=== PATIENT | male | born 1960 | race Caucasian/White ===

== ENCOUNTER 2021-02-11 07:57 | Day surgery (SDC) | payer OTHER ==
[~2021-02-11 07:57] MED LIST: ALBU90OI INH; ASPI81CH PO; AZIT250 PO; BUPR150ER PO; HYDACE5 PO; HYDGUAL120 PO; METF500 PO; METO25ER PO; NAPR500; Prinivil10 MG PO; ROSU5 PO; TRAM50 PO
--- NOTE | 2021-02-11 08:24 | NUR ---
Ambulatory in Day Surgery History, Chart, Medications and Allergies reviewed before start of procedure.Patient confirms NPO status and agrees with scheduled surgery. Patient states colon prep results clear. Patient States Post-Procedure ride home has been arranged.
--- NOTE | 2021-02-11 08:38 | NUR ---
02/11/21 0838 SILVIO CASTILLO History, Chart, Medications and Allergies reviewed before start of procedure. 3-LEAD EKG REVIEWED WITH PHYSICIAN PRIOR TO START OF PROCEDURE. O2 VIA POM INTACT THROUGHOUT SEDATION/PROCEDURE. MONITOR INTACT WITH CONTINUOUS PULSE OXIMETRY AND INTERMITTENT BP. PATIENT DETERMINED TO BE ASA APPROPRIATE FOR PROPOFOL SEDATION PRIOR TO START OF PROCEDURE BY .
--- NOTE | 2021-02-11 09:43 | NUR ---
DISCHARGE SUMMARY PT A&OX4, VSS, CINDY PO, DENIES NEEDING TO VOID, LEFT IN WC WITH DC VOLUNTEER, TO GO HOME WITH , WITH ALL PERSONAL POSSESSIONS INCLUDING PHONE AND DC PACKET. DC INSTRUCTIONS PROVIDED. PT REP UNDERSTANDING THOSE INSTRUCTIONS INCLUDING KEEPING FU APPT, COLONOSCOPY IN 3 YEARS. IV DC'D.
== END 2021-02-11 22:39 | disposition home or self-care (01) ==
LOC: ORSCMMR 07:57 → ORD 09:00 → ORSCMMR 22:39
PROVIDERS: Internal Medicine Gastroenterology
PROC: 0DBH8ZX Excision of Cecum, Via Natural or Artificial Opening Endoscopic, Diagnostic (ICD-10-PCS; principal; 2021-02-11 09:00)
PROC: 0DBN8ZX Excision of Sigmoid Colon, Via Natural or Artificial Opening Endoscopic, Diagnostic (ICD-10-PCS; principal; 2021-02-11 09:00)
PROC: 0DBM8ZX Excision of Descending Colon, Via Natural or Artificial Opening Endoscopic, Diagnostic (ICD-10-PCS; principal; 2021-02-11 09:00)
DX: Z12.11 Encounter for screening for malignant neoplasm of colon (principal); E11.9 Type 2 diabetes mellitus without complications; D12.5 Benign neoplasm of sigmoid colon; D12.4 Benign neoplasm of descending colon; D12.0 Benign neoplasm of cecum; K57.30 Diverticulosis of large intestine without perforation or abscess without bleeding; I10 Essential (primary) hypertension; E78.00 Pure hypercholesterolemia, unspecified; F32.9 Major depressive disorder, single episode, unspecified; Z79.84 Long term (current) use of oral hypoglycemic drugs; Z79.82 Long term (current) use of aspirin; Z79.899 Other long term (current) drug therapy
CPT/HCPCS: 82947; 88305; J2704; J7120

== ENCOUNTER 2021-09-02 08:33 | Emergency (ER) | payer OTHER ==
[~2021-09-02] VITALS: Ht 180.3 cm; Wt 99.8 kg
[~2021-09-02 08:33] MED LIST changes: +MELO7.5 PO
[2021-09-02 09:14] LABS: BASOPHILS ABSOLUTE AUTO 0.11 K/mm3 (0.00-0.23); BASOPHILS PERCENT AUTO 1 % (0-2); EOSINOPHILS ABSOLUTE AUTO 0.16 K/mm3 (0.00-0.68); EOSINOPHILS PERCENT AUTO 1 % (0-6); Hematocrit 47.4 % (37.0-53.0); Hemoglobin 16.4 g/dL (13.5-17.5); IMMATURE GRAN ABSOLUTE AUTO 0.09 K/mm3 (0.00-0.10); IMMATURE GRAN PERCENT AUTO 1 % (0-1); LYMPHOCYTES ABSOLUTE AUTO 2.68 K/mm3 (0.84-5.20); LYMPHOCYTES PERCENT AUTO 14 % (21-46); MONOCYTES ABSOLUTE AUTO 1.43 K/mm3 (0.16-1.47); MONOCYTES PERCENT AUTO 8 % (4-13); Mean Corpuscular HGB 30.2 pg (26.0-34.0); Mean Corpuscular HGB Conc 34.6 g/dL (31.5-36.5); Mean Corpuscular Volume 87 fL (80-100); Mean Platelet Volume 10.6 fL (9.1-12.4); NEUTROPHILS ABSOLUTE AUTO 14.28 K/mm3 (1.96-9.15); NEUTROPHILS PERCENT AUTO 76 % (41-73); Platelet Count 433 K/mm3 (150-400); RDW Coefficient Variation 12.1 % (11.7-14.2); Red Blood Cell Count 5.43 M/mm3 (4.30-5.90); White Blood Cell Count 18.75 K/mm3 (4.00-11.30)
[2021-09-02] MEDS ORDERED: STEGLATRO5 MG PO (09:30)
[2021-09-02 09:41] LABS: Alanine Aminotransfer (ALT/SGP 47 U/L (12-78); Albumin, Blood 3.5 g/dL (3.4-5.0); Albumin/Globulin Ratio 0.7 (0.8-1.8); Alk Phos 82 U/L (50-136); Anion Gap 6 mmol/L (6-16); Aspartate Aminotrans (AST/SGOT 106 U/L (12-37); Bilirubin, Total 0.6 mg/dL (0.1-1.0); Blood Urea Nitrogen 10 mg/dL (8-24); Bun/Creatinine Ratio 18.1 (12.0-20.0); CO2, Blood 24 mmol/L (21-32); Calcium, Blood 10.8 mg/dL (8.5-10.1); Chloride, Blood 101 mmol/L (98-108); Creatinine, Blood 0.55 mg/dL (0.60-1.20); Globulin, Blood 5.1 g/dL (2.2-4.0); Glomerular Filtration Rate >60 (60-); Glucose, Blood 182 mg/dL (70-99); Potassium, Blood 6.7 mmol/L (3.5-5.5); Sodium, Blood 131 mmol/L (136-145); Total Protein, Blood 8.6 g/dL (6.4-8.2)
[2021-09-02 10:30] LABS: Anion Gap 9 mmol/L (6-16); Blood Urea Nitrogen 10 mg/dL (8-24); Bun/Creatinine Ratio 15.6 (12.0-20.0); CO2, Blood 25 mmol/L (21-32); Calcium, Blood 10.5 mg/dL (8.5-10.1); Chloride, Blood 102 mmol/L (98-108); Creatinine, Blood 0.64 mg/dL (0.60-1.20); Glomerular Filtration Rate >60 (60-); Glucose, Blood 170 mg/dL (70-99); Sodium, Blood 136 mmol/L (136-145)
[2021-09-02 10:31] LABS: Potassium, Blood 4.2 mmol/L (3.5-5.5)
[2021-09-02] MEDS ORDERED: AMOX-CLAV 875-1 EAC5 PO (12:21)
[2021-09-02] MEDS ORDERED: ONDA4ODT MM (14:41)
[2021-09-02] MEDS ORDERED: HYDR1TAB94 PO (14:41)
[2021-09-02 16:19] LABS: Influenza A, PCR NEGATIVE (NEGATIVE); Influenza B, PCR NEGATIVE (NEGATIVE); Resp Syncytial Virus, PCR NEGATIVE (NEGATIVE); SARS-Cov-2 (COVID-19) PCR, MMC NEGATIVE (NEGATIVE)
== END 2021-09-02 15:50 | disposition home or self-care (01) ==
LOC: ER 08:33
PROVIDERS: Physician Assistant
DX: K85.90 Acute pancreatitis without necrosis or infection, unspecified (principal); I10 Essential (primary) hypertension; Z79.2 Long term (current) use of antibiotics; Z79.84 Long term (current) use of oral hypoglycemic drugs; Z79.899 Other long term (current) drug therapy
CPT/HCPCS: 0241U; 71046; 76705; 80048; 80053; 83605; 83690; 84145; 84484; 85025; 93005; 93010; 96374; 96375; 99285-25; A9270; J1170; J1885; J7120

== ENCOUNTER 2021-10-26 12:00 | Day surgery (SDC) | payer OTHER ==
[~2021-10-26 12:00] MED LIST changes: +AMOX-CLAV 875-1 EAC5 PO; +HYDR1TAB94 PO; +ONDA4ODT MM; +STEGLATRO5 MG PO
[2021-10-27 03:48] LABS: BASOPHILS ABSOLUTE AUTO 0.02 K/mm3 (0.00-0.23); BASOPHILS PERCENT AUTO 0 % (0-2); EOSINOPHILS PERCENT AUTO 0 % (0-6); Hematocrit 46.6 % (37.0-53.0); Hemoglobin 14.6 g/dL (13.5-17.5); IMMATURE GRAN ABSOLUTE AUTO 0.11 K/mm3 (0.00-0.10); IMMATURE GRAN PERCENT AUTO 1 % (0-1); LYMPHOCYTES ABSOLUTE AUTO 2.47 K/mm3 (0.84-5.20); LYMPHOCYTES PERCENT AUTO 15 % (21-46); MONOCYTES ABSOLUTE AUTO 1.46 K/mm3 (0.16-1.47); MONOCYTES PERCENT AUTO 9 % (4-13); Mean Corpuscular HGB 28.8 pg (26.0-34.0); Mean Corpuscular HGB Conc 31.3 g/dL (31.5-36.5); Mean Corpuscular Volume 92 fL (80-100); Mean Platelet Volume 10.3 fL (9.1-12.4); NEUTROPHILS ABSOLUTE AUTO 12.79 K/mm3 (1.96-9.15); NEUTROPHILS PERCENT AUTO 76 % (41-73); Platelet Count 327 K/mm3 (150-400); RDW Coefficient Variation 13.7 % (11.7-14.2); RDW Standard Deviation 46.1 fL (35.1-46.3); Red Blood Cell Count 5.07 M/mm3 (4.30-5.90); White Blood Cell Count 16.85 K/mm3 (4.00-11.30)
[2021-10-27 04:04] LABS: Anion Gap 10 mmol/L (6-16); Blood Urea Nitrogen 20 mg/dL (8-24); Bun/Creatinine Ratio 24.1 (12.0-20.0); CO2, Blood 23 mmol/L (21-32); Chloride, Blood 101 mmol/L (98-108); Creatinine, Blood 0.83 mg/dL (0.60-1.20); Glomerular Filtration Rate >60 (60-); Glucose, Blood 170 mg/dL (70-99); Potassium, Blood 3.8 mmol/L (3.5-5.5); Sodium, Blood 134 mmol/L (136-145)
--- NOTE | 2021-10-27 06:13 | NUR ---
SUMMARY NO NEW ISSUES NOTED. PT DISCOMFORT HAS BEEN MINIMAL. PT HAS GOOD PEDAL PULSES AND GOOD SENSATION THROUGHOUT. PT HAS BEEN VOIDING WELL AND AMBULATING VIA GAIT BELT AND FWW. PT CURRENTLY AWAKE AND IN GOOD SPIRITS. CALL LIGHTIN REACH.
[2021-10-27] MEDS ORDERED: ASPI81CH PO (11:15)
[2021-10-27] MEDS ORDERED: Norco 5-325 Ta1 EACH PO (11:16)
--- NOTE | 2021-10-27 11:35 | NUR ---
DISCHARGE PT HAS CLEARED THERAPY. PAIN WELL CONTROLLED. EATING, DRINKING, & VOIDING WELL. DRSG, SCRIPT, & POLAR PACK SENT w/ PT. ESCORTED OUT VIA W/C.
== END 2021-10-27 11:35 | disposition home or self-care (01) ==
LOC: ORSCMMR 12:00 → SURS 16:22 → ORSCMMR 10-27 11:35
PROVIDERS: Orthopaedic Surgery
PROC: 0SRB0JZ Replacement of Left Hip Joint with Synthetic Substitute, Open Approach (ICD-10-PCS; principal; 2021-10-26 13:30)
DX: M16.12 Unilateral primary osteoarthritis, left hip (principal); I10 Essential (primary) hypertension; J45.909 Unspecified asthma, uncomplicated; E11.9 Type 2 diabetes mellitus without complications; G47.33 Obstructive sleep apnea (adult) (pediatric); Z79.899 Other long term (current) drug therapy; Z79.84 Long term (current) use of oral hypoglycemic drugs
CPT/HCPCS: 36415; 72170; 80048; 82947; 85025; 97110; 97116; 97161; A9270; C1776; J0171; J0690; J0735; J1100; J1885; J2250; J2370; J2405; J2550; J2704; J2765; J2795; J3010; J7120

== ENCOUNTER → 2022-03-28 | Outpatient (CLI) | payer OTHER ==
[~2022-03-28] MED LIST changes: +Norco 5-325 Ta1 EACH PO
[2022-03-28 15:06] LABS: BASOPHILS ABSOLUTE AUTO 0.05 K/mm3 (0.00-0.23); BASOPHILS PERCENT AUTO 1 % (0-2); EOSINOPHILS PERCENT AUTO 2 % (0-6); Hemoglobin 16.7 g/dL (13.5-17.5); IMMATURE GRAN ABSOLUTE AUTO 0.04 K/mm3 (0.00-0.10); IMMATURE GRAN PERCENT AUTO 0 % (0-1); LYMPHOCYTES ABSOLUTE AUTO 2.94 K/mm3 (0.84-5.20); LYMPHOCYTES PERCENT AUTO 29 % (21-46); MONOCYTES PERCENT AUTO 10 % (4-13); Mean Corpuscular HGB 29.1 pg (26.0-34.0); Mean Corpuscular HGB Conc 32.7 g/dL (31.5-36.5); Mean Corpuscular Volume 89 fL (80-100); Mean Platelet Volume 10.9 fL (9.1-12.4); NEUTROPHILS ABSOLUTE AUTO 6.05 K/mm3 (1.96-9.15); NEUTROPHILS PERCENT AUTO 59 % (41-73); Platelet Count 360 K/mm3 (150-400); RDW Coefficient Variation 14.6 % (11.7-14.2); RDW Standard Deviation 48.1 fL (35.1-46.3); Red Blood Cell Count 5.73 M/mm3 (4.30-5.90); White Blood Cell Count 10.28 K/mm3 (4.00-11.30)
[2022-03-28 15:29] LABS: Anion Gap 9 mmol/L (6-16); Blood Urea Nitrogen 15 mg/dL (8-24); Bun/Creatinine Ratio 20.4 (12.0-20.0); CHOL/HDL RATIO 3.3; CO2, Blood 23 mmol/L (21-32); Calcium, Blood 9.9 mg/dL (8.5-10.1); Chloride, Blood 104 mmol/L (98-108); Cholesterol 162 mg/dL (50-200); Creatinine, Blood 0.74 mg/dL (0.60-1.20); Glomerular Filtration Rate 104 (60-); Glucose, Blood 188 mg/dL (70-99); HDL Cholesterol 49 mg/dL (>39); LDL/HDL RATIO 1.8; Low Density Lipoprotein Chol 87 mg/dL (0-110); Potassium, Blood 4.4 mmol/L (3.5-5.5); Sodium, Blood 136 mmol/L (136-145); Triglycerides 129 mg/dL (30-160); Very Low Density Lipoprot Chol 25 mg/dL (6-32)
[2022-03-29 10:10] LABS: HIV AB/P24 AG SCREEN Non Reactive (Non Reactive)
== END | disposition home or self-care (01) ==
LOC: LAB SHORT 14:17 → LAB 14:17
PROVIDERS: Nurse Practitioner Family
DX: Z13.29 Encounter for screening for other suspected endocrine disorder (principal); Z11.4 Encounter for screening for human immunodeficiency virus [HIV]; E78.5 Hyperlipidemia, unspecified; I10 Essential (primary) hypertension
CPT/HCPCS: 80048; 80061; 83036; 84443; 85025; 87389

== ENCOUNTER → 2023-08-08 | Outpatient (CLI) | payer OTHER ==
[2023-08-08 22:26] LABS: Microalb/Creat Ratio UR, Rand 20.42 mg/g (0.000-30.000); Microalbumin, Random Urine 24.3 mg/L (0.000-20.000)
== END | disposition home or self-care (01) ==
LOC: LAB SHORT 18:40 → LAB 18:40
PROVIDERS: Nurse Practitioner Family
DX: E11.8 Type 2 diabetes mellitus with unspecified complications (principal)
CPT/HCPCS: 82043; 82570

== ENCOUNTER 2023-11-14 09:26 | Emergency (ER) | payer OTHER ==
[~2023-11-14] VITALS: Ht 180.3 cm; Wt 95.2 kg
[2023-11-14 10:13] VITALS: BP 140/91
[2023-11-14] MEDS ORDERED: Ketorolac Tromethamine 30mg Vial IM ONE (11:10)
[2023-11-14] MEDS ORDERED: LISI5 PO (12:09)
[2023-11-14] MEDS ORDERED: Budeprion Xl300 MG PO (12:10)
[2023-11-14] MEDS ORDERED: PredniSONE 20 MG Tab PO ONE (12:15)
[2023-11-14] MEDS ORDERED: Prednisone20 MG PO (12:30)
== END 2023-11-14 13:01 | disposition home or self-care (01) ==
LOC: ER 09:26
DX: M54.16 Radiculopathy, lumbar region (principal); I10 Essential (primary) hypertension; E78.00 Pure hypercholesterolemia, unspecified; Z88.6 Allergy status to analgesic agent; Z79.84 Long term (current) use of oral hypoglycemic drugs; Z79.899 Other long term (current) drug therapy; Z79.82 Long term (current) use of aspirin
CPT/HCPCS: 96372; 99283-25; J1885; J7512

== ENCOUNTER → 2023-11-16 | Outpatient (CLI) | payer OTHER ==
[~2023-11-16] MED LIST changes: +Budeprion Xl300 MG PO; +LISI5 PO; +Prednisone20 MG PO
[2023-11-16 17:23] LABS: BASOPHILS ABSOLUTE AUTO 0.02 K/mm3 (0.00-0.23); BASOPHILS PERCENT AUTO 0 % (0-2); EOSINOPHILS PERCENT AUTO 0 % (0-6); Hematocrit 48.7 % (37.0-53.0); Hemoglobin 17.2 g/dL (13.5-17.5); IMMATURE GRAN ABSOLUTE AUTO 0.08 K/mm3 (0.00-0.10); IMMATURE GRAN PERCENT AUTO 1 % (0-1); LYMPHOCYTES ABSOLUTE AUTO 2.13 K/mm3 (0.84-5.20); LYMPHOCYTES PERCENT AUTO 18 % (21-46); MONOCYTES ABSOLUTE AUTO 0.99 K/mm3 (0.16-1.47); MONOCYTES PERCENT AUTO 8 % (4-13); Mean Corpuscular HGB 32.6 pg (26.0-34.0); Mean Corpuscular HGB Conc 35.3 g/dL (31.5-36.5); Mean Corpuscular Volume 92 fL (80-100); Mean Platelet Volume 10.4 fL (9.1-12.4); NEUTROPHILS ABSOLUTE AUTO 8.89 K/mm3 (1.96-9.15); NEUTROPHILS PERCENT AUTO 73 % (41-73); Platelet Count 360 K/mm3 (150-400); RDW Coefficient Variation 12.7 % (11.7-14.2); RDW Standard Deviation 43.3 fL (35.1-46.3); Red Blood Cell Count 5.27 M/mm3 (4.30-5.90); White Blood Cell Count 12.11 K/mm3 (4.00-11.30)
[2023-11-16 17:46] LABS: Albumin, Blood 4.1 g/dL (3.4-5.0); Albumin/Globulin Ratio 1.1 (0.8-1.8); Bilirubin, Total 0.8 mg/dL (0.1-1.0); Bun/Creatinine Ratio 28.5 (12.0-20.0); Creatinine, Blood 0.74 mg/dL (0.60-1.20); Globulin, Blood 3.6 g/dL (2.2-4.0); Potassium, Blood 4.8 mmol/L (3.5-5.5); Total Protein, Blood 7.7 g/dL (6.4-8.2)
== END ==
LOC: LAB 14:35 → LAB SHORT 14:35
PROVIDERS: Nurse Practitioner Family
DX: I10 Essential (primary) hypertension (principal); E11.8 Type 2 diabetes mellitus with unspecified complications
CPT/HCPCS: 80053; 83036; 85025

== ENCOUNTER 2024-02-06 07:31 | Day surgery (SDC) | payer OTHER ==
[~2024-02-06] VITALS: Ht 180.3 cm; Wt 92.9 kg
[2024-02-06] VITALS (13 sets, daily range): BP systolic 95–144; BP diastolic 65–96
[~2024-02-06 07:31] MED LIST changes: +Lactated Ringer's 1,000 ML IV SCH
[2024-02-06] MEDS ORDERED: propofoL 20 ML IV ONE (08:24)
--- NOTE | 2024-02-06 08:47 | NUR ---
02/06/24 0847 Garo Ramos HISTORY, CHART, MEDICATIONS AND ALLERGIES REVIEWED BEFORE START OF PROCEDURE. PATIENT CONFIRMS NPO STATUS AND AGREES WITH SCHEDULED PROCEDURE. 3-LEAD EKG REVIEWED WITH PHYSICIAN PRIOR TO START OF PROCEDURE. MONITOR INTACT WITH CONTINUOUS PULSE OXIMETRY,CAPNOGRAPHY, 3-LEAD EKG, INTERMITTENT BP. SUPPLEMENTAL O2 TO BE TITRATED THROUGHOUT PROCEDURE TO MAINTAIN O2 SATURATION ABOVE 90%. PATIENT DETERMINED TO BE ASA APPROPRIATE FOR PROPOFOL SEDATION PRIOR TO START OF PROCEDURE BY
--- NOTE | 2024-02-06 09:42 | NUR ---
DISCHARGE PT A&OX4, VSS/RA, CINDY PO, DENIES PAIN, DRESSED SELF, DC INS PROVIDED, PT AND REP UNDERSTANDING THOSE INSTRUCTIONS. LEFT FLOOR VIA WC WITH DC VOL TO GO HOME WITH , WITH ALL PERSONAL POSSESSIONS.
== END 2024-02-06 09:40 | disposition home or self-care (01) ==
LOC: ORSCMMR 07:31 → ORD 08:30 → ORSCMMR 09:40
PROVIDERS: Internal Medicine Gastroenterology
PROC: 0DBH8ZX Excision of Cecum, Via Natural or Artificial Opening Endoscopic, Diagnostic (ICD-10-PCS; principal; 2024-02-06 08:30)
DX: Z12.11 Encounter for screening for malignant neoplasm of colon (principal); Z86.010 Personal history of colon polyps; K63.5 Polyp of colon; K57.30 Diverticulosis of large intestine without perforation or abscess without bleeding; M62.89 Other specified disorders of muscle; E11.9 Type 2 diabetes mellitus without complications; I10 Essential (primary) hypertension; F32.A Depression, unspecified; E78.00 Pure hypercholesterolemia, unspecified; Z79.84 Long term (current) use of oral hypoglycemic drugs; Z79.899 Other long term (current) drug therapy
CPT/HCPCS: 82947; 88305; J2704; J7120